=== PATIENT | female | born 1975 | race Caucasian/White ===

== ENCOUNTER 2023-01-13 09:38 | Inpatient (IN) ==
--- NOTE | 2023-01-13 09:54 | Emergency Department Note ---
Impression & Plan Depression with suicidal ideation ED Provider Note Provider: Gurjit Rodriguez MD DATE OF SERVICE: 01/13/2023 CHIEF COMPLAINT: Suicidal thoughts HISTORY OF PRESENT ILLNESS: Patient is a 47-year-old female past medical history including headaches and mood disorder presenting here today reporting she has had worsening suicidal thoughts developing over the last several months. States she currently is a plan to try to end her life reporting thoughts of wanting to cut her arms as well as put a bag over her head. Has also stated she has had thoughts of increasingly wanting to gouge her eyes out. [place] beginning of the [place]. Has not had recent psychiatry follow-up and only saw MARCEL AGUILA once and got some Cymbalta she was previously on but has not been on medication in months. States that she is not really having hallucinations but these recurrent thoughts and not sleeping well. States that she does not have money and is currently staying at different places. Moved back to be closer to family and unfortunately with the of sister. Patient denies drug or alcohol issues. States she has had some thoughts of wanting others to or possibly burning the house down or wanting them not to wake up. Patient states she has not acted on her thoughts to harm her self or others at this time but feels that she could benefit from inpatient treatment. Contacted [facility] and referred here today. Reports she has had prior suicide attempts and inpatient treatment in the past PAST MEDICAL HISTORY: As noted above MEDICATIONS: Not currently on an SOCIAL HISTORY: Denies drug or alcohol use PHYSICAL EXAM: GENERAL: alert and oriented in no acute distress on stretcher somewhat tearful during exam Head: normocephalic and atraumatic EYES: No injection, discharge or icterus. NECK: Trachea midline. LUNGS: Airway patent. No retractions. Breath sounds clear with good air entry bilaterally. HEART: Regular rate and rhythm. SKIN: Acyanotic, warm, dry, without rashes. Patient with a slight paper cut on the left thenar eminence but no evidence of active rash. EXTREMITIES: Without swelling, tenderness or deformity NEUROLOGICAL: No focal deficits. No aphasia. No facial droop or slurred speech. Ambulatory. Psych: Reports depressive and suicidal thoughts. Having some thoughts of wanting others to be or possibly harm. Denies acting on those at this time. Somewhat flattened affect but at times tearful. Patient's laboratory studies and imaging reviewed. Differential includes Mood disorder, infection, hypoglycemia, electrolyte abnormalities, cardiac sources, intracerebral event, toxicologic, trauma, neurologic, as well as other pathologies. IMPRESSION/MEDICAL DECISION MAKING: Patient at risk given lack of outpatient support both socially and in his psychiatric stents. Not on medications now. Prior history of uncompleted suicide and inpatient treatment. Reporting multiple suicidal plans at this time as well as some concerning thoughts of possibly wanting to harm others. Seen with case management. Basic labs obtained here. No severe abnormalities noted. Urinalysis questions contamination versus possible UTI. Will send for culture but will empirically cover with a course of Macrobid at this time. Patient denies significant symptoms. Discussed with the patient and she is agreement with voluntary inpatient psychiatric treatment. Referrals were made for this. She denies any active rash or shingles outbreak at this time. Evaluated by [facility] for possible inpatient treatment. DIAGNOSIS: Depression with suicidal ideation DISPOSITION: Accepted to [facility] for further inpatient treatment on . Past Med/Surg History Medical History (Updated 01/13/23 @ 12:50 by Gurjit Rodriguez M.D.) Anxiety Surgical History S/P cholecystectomy Social History Smoking Status: Never smoker Preferred Language: Japanese Feels Safe at Home: Yes Gender Identity: Female Allergies Allergies Allergy/AdvReac Type Severity Reaction Status Date / Time Penicillins Allergy Severe ANAPHYLAXIS Verified 11/06/20 16:07 tramadol Allergy Unknown Hypotension Verified 11/06/20 16:07 Home Meds Home Medications Medication Instructions Recorded Confirmed sumatriptan succinate 100 mg tablet 100 mg PO DAILY PRN Migraine 05/23/18 01/13/23 Headache dicyclomine 10 mg capsule 10 mg PO ACHS 11/06/20 01/13/23 meloxicam 15 mg tablet 15 mg PO DAILY 11/06/20 01/13/23 promethazine 25 mg tablet 25 mg PO Q6 PRN Nausea And Vomiting 11/06/20 01/13/23 topiramate 25 mg tablet 25 mg PO DAILY 11/06/20 01/13/23 benzonatate 100 mg capsule 100 mg PO TID PRN Cough 11/20/21 01/13/23 fluticasone propionate 50 50 mcg intranasal DAILY 11/20/21 01/13/23 mcg/actuation nasal spray,suspension hydroxychloroquine 200 mg tablet 200 mg PO BID 11/20/21 01/13/23 nystatin 100,000 unit/mL oral 5 ml mucous membrane DAILY PRN 11/20/21 01/13/23 suspension thrush Results & Data (ED) Vital Signs Vital Signs - 24 hr 01/13/23 09:39 Temperature 36.6 C Temperature Source Temporal Artery Scan Pulse Rate 94 H Respiratory Rate 16 Respiratory Depth Normal Blood Pressure 134/94 Blood Pressure Mean 107 Pulse Oximetry 99 Oxygen Delivery Method Room Air Sepsis Recent Fever Within 48 Hours No Sepsis New/Unexplained Change in Mental Status No Sepsis Action Taken by Nursing No Action Required Laboratory Data 01/13/23 10:05 01/13/23 10:05 Lab Results 01/13/23 01/13/23 01/13/23 Range/Units 09:45 09:58 09:58 WBC (4.8-10.8) K/ul RBC (4.20-5.40) M/uL Hgb (12.0-16.0) g/dl Hct (37.0-47.0) % MCV (80.0-100.0) fL MCH (25.0-34.0) pg MCHC (32.0-36.0) g/dL RDW Std Deviation (36.4-46.3) fL RDW Coeff of Gaetano (11.5-14.5) % Plt Count (130-400) K/uL MPV (9.4-12.4) fL Immature Gran % (Auto) % Neut % (Auto) % Lymph % (Auto) % Greer % (Auto) % Eos % (Auto) % Baso % (Auto) % Neut # (Auto) (1.40-6.50) K/uL Lymph # (Auto) (1.20-3.40) K/uL Greer # (Auto) (0.11-0.59) K/uL Eos # (Auto) (0.00-0.50) K/uL Baso # (Auto) (0.00-0.20) K/uL Immature Gran # (Auto) (0.01-0.20) K/uL Sodium (136-145) mmol/L Potassium (3.5-5.1) mmol/L Chloride (98-107) mmol/L Carbon Dioxide (21-32) mmol/L Anion Gap (3-11) BUN (6-23) mg/dl Creatinine (0.6-1.2) mg/dl Est Cr Clr Drug Dosing ml/min Est GFR ( Amer) ml/min Est GFR (Non-Af Amer) ml/min BUN/Creatinine Ratio (10-20) Glucose (70-99(Fasting)) mg/dl Calcium (8.6-10.3) mg/dl Total Bilirubin (0.2-1.0) mg/dl AST (13-39) U/L ALT (7-52) U/L Alkaline Phosphatase (34-104) U/L Total Protein (6.0-8.3) gm/dl Albumin (3.4-5.0) gm/dl Globulin (2.5-4.0) gm/dl Albumin/Globulin Ratio (0.9-2) TSH (0.300-4.500) uIu/ml Urine Color Yellow Urine Appearance Cloudy A (Clear) Urine pH 6.0 (4.5-7.5) Ur Specific Kenton 1.029 (1.000-1.030) Urine Protein Negative (Negative) Urine Glucose (UA) Negative (Negative) Urine Ketones Negative (Negative) Urine Blood Negative (Negative) Urine Nitrite Negative (Negative) Urine Bilirubin Negative (Negative) Urine Urobilinogen Negative (Negative) Ur Leukocyte Esterase 2+ H (Negative) Urine WBC (Auto) 10-30 H (0-5) /hpf Urine RBC (Auto) 0-4 (0-4) /hpf U Hyaline Cast (Auto) 5-10 H (0-5) /lpf U Epithel Cells (Auto) >30 H (0-5) /lpf Urine Bacteria (Auto) 3+ H (Negative) Salicylates (3.0-30) mg/dl Urine Opiates Screen (Neg) Ur Methadone, Qual (Neg) Acetaminophen (10-30) ug/ml Urine Barbiturates (Neg) Ur Phencyclidine (PCP) (Neg) U Amphetamin/Meth Scrn (Neg) MDMA (Ecstasy) Screen (Neg) U Benzodiazepines Scrn (Neg) Ur Cocaine Metabolite (Neg) U Marijuana (THC) Screen (Neg) Ethyl Alcohol mg/dL < 10.0 (<10.0) mg/dl SARS-CoV-2, RNA, NAAT NEGATIVE (NEGATIVE) 01/13/23 01/13/23 01/13/23 Range/Units 09:58 10:05 10:05 WBC 5.22 (4.8-10.8) K/ul RBC 5.17 (4.20-5.40) M/uL Hgb 15.4 (12.0-16.0) g/dl Hct 44.4 (37.0-47.0) % MCV 85.9 (80.0-100.0) fL MCH 29.8 (25.0-34.0) pg MCHC 34.7 (32.0-36.0) g/dL RDW Std Deviation 38.3 (36.4-46.3) fL RDW Coeff of Gaetano 12.3 (11.5-14.5) % Plt Count 249 (130-400) K/uL MPV 10.1 (9.4-12.4) fL Immature Gran % (Auto) 1.3 % Neut % (Auto) 56.4 % Lymph % (Auto) 33.1 % Greer % (Auto) 7.3 % Eos % (Auto) 1.3 % Baso % (Auto) 0.6 % Neut # (Auto) 2.94 (1.40-6.50) K/uL Lymph # (Auto) 1.73 (1.20-3.40) K/uL Greer # (Auto) 0.38 (0.11-0.59) K/uL Eos # (Auto) 0.07 (0.00-0.50) K/uL Baso # (Auto) 0.03 (0.00-0.20) K/uL Immature Gran # (Auto) 0.07 (0.01-0.20) K/uL Sodium 138 (136-145) mmol/L Potassium 3.4 L (3.5-5.1) mmol/L Chloride 105 (98-107) mmol/L Carbon Dioxide 28 (21-32) mmol/L Anion Gap 5 (3-11) BUN 13 (6-23) mg/dl Creatinine 0.87 (0.6-1.2) mg/dl Est Cr Clr Drug Dosing 78.1 ml/min Est GFR ( Amer) 90.7 ml/min Est GFR (Non-Af Amer) 78.2 ml/min BUN/Creatinine Ratio 14.9 (10-20) Glucose 81 (70-99(Fasting)) mg/dl Calcium 9.5 (8.6-10.3) mg/dl Total Bilirubin 0.6 (0.2-1.0) mg/dl AST 12 L (13-39) U/L ALT 12 (7-52) U/L Alkaline Phosphatase 78 (34-104) U/L Total Protein 7.5 (6.0-8.3) gm/dl Albumin 4.6 (3.4-5.0) gm/dl Globulin 2.9 (2.5-4.0) gm/dl Albumin/Globulin Ratio 1.6 (0.9-2) TSH 0.652 (0.300-4.500) uIu/ml Urine Color Urine Appearance (Clear) Urine pH (4.5-7.5) Ur Specific Kenton (1.000-1.030) Urine Protein (Negative) Urine Glucose (UA) (Negative) Urine Ketones (Negative) Urine Blood (Negative) Urine Nitrite (Negative) Urine Bilirubin (Negative) Urine Urobilinogen (Negative) Ur Leukocyte Esterase (Negative) Urine WBC (Auto) (0-5) /hpf Urine RBC (Auto) (0-4) /hpf U Hyaline Cast (Auto) (0-5) /lpf U Epithel Cells (Auto) (0-5) /lpf Urine Bacteria (Auto) (Negative) Salicylates (3.0-30) mg/dl Urine Opiates Screen Neg (Neg) Ur Methadone, Qual Neg (Neg) Acetaminophen (10-30) ug/ml Urine Barbiturates Neg (Neg) Ur Phencyclidine (PCP) Neg (Neg) U Amphetamin/Meth Scrn Neg (Neg) MDMA (Ecstasy) Screen Neg (Neg) U Benzodiazepines Scrn Neg (Neg) Ur Cocaine Metabolite Neg (Neg) U Marijuana (THC) Screen Neg (Neg) Ethyl Alcohol mg/dL (<10.0) mg/dl SARS-CoV-2, RNA, NAAT (NEGATIVE) 01/13/23 Range/Units 10:05 WBC (4.8-10.8) K/ul RBC (4.20-5.40) M/uL Hgb (12.0-16.0) g/dl Hct (37.0-47.0) % MCV (80.0-100.0) fL MCH (25.0-34.0) pg MCHC (32.0-36.0) g/dL RDW Std Deviation (36.4-46.3) fL RDW Coeff of Gaetano (11.5-14.5) % Plt Count (130-400) K/uL MPV (9.4-12.4) fL Immature Gran % (Auto) % Neut % (Auto) % Lymph % (Auto) % Greer % (Auto) % Eos % (Auto) % Baso % (Auto) % Neut # (Auto) (1.40-6.50) K/uL Lymph # (Auto) (1.20-3.40) K/uL Greer # (Auto) (0.11-0.59) K/uL Eos # (Auto) (0.00-0.50) K/uL Baso # (Auto) (0.00-0.20) K/uL Immature Gran # (Auto) (0.01-0.20) K/uL Sodium (136-145) mmol/L Potassium (3.5-5.1) mmol/L Chloride (98-107) mmol/L Carbon Dioxide (21-32) mmol/L Anion Gap (3-11) BUN (6-23) mg/dl Creatinine (0.6-1.2) mg/dl Est Cr Clr Drug Dosing ml/min Est GFR ( Amer) ml/min Est GFR (Non-Af Amer) ml/min BUN/Creatinine Ratio (10-20) Glucose (70-99(Fasting)) mg/dl Calcium (8.6-10.3) mg/dl Total Bilirubin (0.2-1.0) mg/dl AST (13-39) U/L ALT (7-52) U/L Alkaline Phosphatase (34-104) U/L Total Protein (6.0-8.3) gm/dl Albumin (3.4-5.0) gm/dl Globulin (2.5-4.0) gm/dl Albumin/Globulin Ratio (0.9-2) TSH (0.300-4.500) uIu/ml Urine Color Urine Appearance (Clear) Urine pH (4.5-7.5) Ur Specific Kenton (1.000-1.030) Urine Protein (Negative) Urine Glucose (UA) (Negative) Urine Ketones (Negative) Urine Blood (Negative) Urine Nitrite (Negative) Urine Bilirubin (Negative) Urine Urobilinogen (Negative) Ur Leukocyte Esterase (Negative) Urine WBC (Auto) (0-5) /hpf Urine RBC (Auto) (0-4) /hpf U Hyaline Cast (Auto) (0-5) /lpf U Epithel Cells (Auto) (0-5) /lpf Urine Bacteria (Auto) (Negative) Salicylates < 3.0 L (3.0-30) mg/dl Urine Opiates Screen (Neg) Ur Methadone, Qual (Neg) Acetaminophen < 3 L (10-30) ug/ml Urine Barbiturates (Neg) Ur Phencyclidine (PCP) (Neg) U Amphetamin/Meth Scrn (Neg) MDMA (Ecstasy) Screen (Neg) U Benzodiazepines Scrn (Neg) Ur Cocaine Metabolite (Neg) U Marijuana (THC) Screen (Neg) Ethyl Alcohol mg/dL (<10.0) mg/dl SARS-CoV-2, RNA, NAAT (NEGATIVE) Administered Medications Nitrofurantoin Macrocrystals (Nitrofurantoin Monohydrate 100 Mg Cap) 100 mg PO BID DRAKE Stop: 01/18/23 10:59 Last Admin: 01/13/23 12:05 Dose: 100 mg Documented By: CPB Discharge Plan Visit Data Chief Complaint: Mental Health Evaluation Stated Complaint: MHE,SUICIDAL ED Provider: Gurjit Rodriguez Discharge Problem: Depression with suicidal ideation Patient Disposition: Admitted As Inpatient Forms Stand Alone Forms: [facility], Suicide Prevention Resources Prescriptions Prescriptions: No Action sumatriptan succinate 100 mg tablet 100 mg PO DAILY PRN (Reason: Migraine Headache) benzonatate 100 mg capsule 100 mg PO TID PRN (Reason: Cough) nystatin 100,000 unit/mL suspension 5 ml mucous membrane DAILY PRN (Reason: thrush) hydroxychloroquine 200 mg tablet 200 mg PO BID fluticasone propionate 50 mcg/actuation spray,suspension 50 mcg INTRANASAL DAILY meloxicam 15 mg tablet 15 mg PO DAILY topiramate 25 mg tablet 25 mg PO DAILY dicyclomine 10 mg capsule 10 mg PO ACHS promethazine 25 mg tablet 25 mg PO Q6 PRN (Reason: Nausea And Vomiting) Referrals Referrals: [facility] [Non-Staff] -
[2023-01-13 10:32] LABS: Basophils # (auto) 0.03 K/uL (0.00-0.20); Basophils % (auto) 0.6 %; Eosinophils # (auto) 0.07 K/uL (0.00-0.50); Eosinophils % (auto) 1.3 %; Hematocrit (blood only) 44.4 % (37.0-47.0); Hemoglobin 15.4 g/dl (12.0-16.0); Immature Granulocytes # (auto) 0.07 K/uL (0.01-0.20); Immature Granulocytes % (auto) 1.3 %; Lymphocytes # (auto) 1.73 K/uL (1.20-3.40); Lymphocytes % (auto) 33.1 %; Mean Corpuscular Hemoglobin 29.8 pg (25.0-34.0); Mean Corpuscular Hgb Conc 34.7 g/dL (32.0-36.0); Mean Corpuscular Volume 85.9 fL (80.0-100.0); Mean Platelet Volume 10.1 fL (9.4-12.4); Monocytes # (auto) 0.38 K/uL (0.11-0.59); Monocytes % (auto) 7.3 %; Neutrophils # (auto) 2.94 K/uL (1.40-6.50); Neutrophils % (auto) 56.4 %; Platelet Count 249 K/uL (130-400); RDW Coefficient of Variation 12.3 % (11.5-14.5); RDW Standard Deviation 38.3 fL (36.4-46.3); Red Blood Count 5.17 M/uL (4.20-5.40); White Blood Count 5.22 K/ul (4.8-10.8)
[2023-01-13 10:36] LABS: Appearance Urine Cloudy (Clear); Bacteria Urine Automated 3+ (Negative); Bilirubin Urine Negative (Negative); Blood Urine Negative (Negative); Color Urine Yellow; Epithelial Cell Urine Auto >30 /lpf (0-5); Glucose Urine UA Negative (Negative); Ketones Urine Negative (Negative); Leukocyte Esterase Urine 2+ (Negative); Nitrite Urine Negative (Negative); Protein Urine Negative (Negative); RBC Urine Automated 0-4 /hpf (0-4); Specific Gravity Urine 1.029 (1.000-1.030); Urobilinogen Urine Negative (Negative)
[2023-01-13 10:43] LABS: Albumin Globulin Ratio 1.6 (0.9-2); Albumin Level 4.6 gm/dl (3.4-5.0); BUN Creatinine Ratio 14.9 (10-20); Bilirubin,Total 0.6 mg/dl (0.2-1.0); Calcium 9.5 mg/dl (8.6-10.3); Creatinine Clr Calc Pharmacy 78.1 ml/min; Est GFR (African American) 90.7 ml/min; Est GFR (Non-African American) 78.2 ml/min; Globulin 2.9 gm/dl (2.5-4.0); Potassium 3.4 mmol/L (3.5-5.1); Total Protein 7.5 gm/dl (6.0-8.3)
[2023-01-13 10:46] LABS: Acetaminophen < 3 ug/ml (10-30); Salicylate < 3.0 mg/dl (3.0-30)
[2023-01-13 10:58] LABS: Thyroid Stimulating Hormone 0.652 uIu/ml (0.300-4.500)
[2023-01-13 11:04] LABS: Amphetamines+Metham, Urine Neg (Neg); Barbiturates, Urine Neg (Neg); Benzodiazepine, Urine Neg (Neg); Cocaine, Urine Neg (Neg); MDMA (Ecstacy), Urine Neg (Neg); Methadone, Urine Neg (Neg); Opiate, Urine Neg (Neg); Phencyclidine, Urine Neg (Neg)
[2023-01-13] MEDS: NITROFURANTOIN MONOHYDRATE 100 MG CAP PO SCH ×2 (12:05→21:47)
[2023-01-13] MEDS ORDERED: SODIUM CHLORIDE 0.65% NA SOLN 45 ML (OCEAN) PRN (14:13)
[2023-01-13] MEDS ORDERED: BISMUTH SUBSALICYLATE LIQD 236 ML PO PRN (14:13)
[2023-01-13] MEDS ORDERED: ACETAMINOPHEN 325 MG TAB PO PRN (14:13)
[2023-01-13] MEDS ORDERED: MAGNESIUM HYDROXIDE SUSP 30 ML UDC PO PRN (14:13)
[2023-01-13] MEDS ORDERED: hydrOXYzine HCl 25 MG TAB PO PRN ×2 (14:13)
[2023-01-13] MEDS ORDERED: SUMAtriptan succinate 100 MG TAB PO PRN (16:15)
[2023-01-13] MEDS: ALUMINUM/MAGNESIUM SUSP 30 ML UDC PO PRN (18:59)
[2023-01-13] MEDS: valACYclovir HCL 500 MG TABLET PO SCH (21:26)
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
[2023-01-14] MEDS: MELOXICAM 7.5 MG TAB PO SCH (08:58)
[2023-01-14] MEDS: valACYclovir HCL 500 MG TABLET PO SCH ×3 (08:58→20:43)
[2023-01-14] MEDS: NITROFURANTOIN MONOHYDRATE 100 MG CAP PO SCH ×2 (08:59→20:42)
[2023-01-14] MEDS: DULoxetine HCL 30 MG CAP PO SCH (13:30)
[2023-01-14] MEDS: ALUMINUM/MAGNESIUM SUSP 30 ML UDC PO PRN (20:26)
[2023-01-14] MEDS: ARIPiprazole 5 MG TAB PO SCH (20:45)
[2023-01-15 08:14] LABS: Chol HDL Ratio 4.2 (0-5)
[2023-01-15] MEDS: valACYclovir HCL 500 MG TABLET PO SCH ×3 (08:46→21:12)
[2023-01-15] MEDS: NITROFURANTOIN MONOHYDRATE 100 MG CAP PO SCH ×2 (08:47→21:12)
[2023-01-15] MEDS: MELOXICAM 7.5 MG TAB PO SCH (08:47)
[2023-01-15] MEDS: DULoxetine HCL 30 MG CAP PO SCH (08:47)
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
[2023-01-15] MEDS: ARIPiprazole 5 MG TAB PO SCH (21:12)
[2023-01-16] MEDS: valACYclovir HCL 500 MG TABLET PO SCH ×3 (08:04→20:43)
[2023-01-16] MEDS: DULoxetine HCL 30 MG CAP PO SCH (08:04)
[2023-01-16] MEDS: NITROFURANTOIN MONOHYDRATE 100 MG CAP PO SCH ×2 (08:04→20:43)
[2023-01-16] MEDS: MELOXICAM 7.5 MG TAB PO SCH (08:04)
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
[2023-01-16] MEDS ORDERED: ERGOCALCIFEROL 50,000 UNITS 1250 MCG CAP PO ONE (13:37)
[2023-01-16] MEDS ORDERED: ARIPiprazole 5 MG TAB PO SCH (22:00)
[2023-01-17] MEDS ORDERED: DULoxetine HCL 60 MG CAP PO SCH (09:00)
[2023-01-17] MEDS: MELOXICAM 7.5 MG TAB PO SCH (09:46)
[2023-01-17] MEDS: valACYclovir HCL 500 MG TABLET PO SCH (09:47)
[2023-01-17] MEDS: NITROFURANTOIN MONOHYDRATE 100 MG CAP PO SCH (09:47)
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
[2023-01-18] MEDS ORDERED: CHOLECALCIFEROL 5,000 UNITS 125 MCG TAB PO SCH (09:00)
== END 2023-01-17 12:22 | disposition home or self-care (01) | DRG 881 ==
LOC: ED 09:38 → 3S 13:40